=== PATIENT | female | born 1985 | race Caucasian/White ===

== ENCOUNTER → 2021-11-03 17:12 | Outpatient (BNVA) | payer OTHER, SELFPAY | PROVIDERS: Visit Provider Psychiatry & Neurology Psychiatry | DX: F43.12 Post-traumatic stress disorder, chronic (principal); F32.9 Major depressive disorder, single episode, unspecified; R45.86 Emotional lability; Z79.899 Other long term (current) drug therapy | CPT/HCPCS: 80053; 80061; 83036; 84443; 85025 ==